=== PATIENT | female | born 1955 | race Caucasian/White ===

== ENCOUNTER → 2023-03-13 | Emergency (ER) | payer OTHER ==
[~2023-03-13] MED LIST: ACETAMINOPHEN 500 MG TAB ONE
--- OUTSIDE RECORDS SUMMARY | 2023-03-13 17:56 | XMS REPORT | Continuity of Care Document ---
Author Name Unknown Address [address] [place] [address] thconnect Address [address] [place] [address] [address] [place] [address] Care Team Providers Care Market Editor Name Role Phone Cyndy Presley Attending Clinician Unavailable Problems Condition Name Condition Details Condition Category Status Onset Date Resolution Date Last Treatment Date Treating Clinician Comments Source Overweight (BMI 25.0-29.9) Overweight (BMI 25.0-29.9) Diagnosis Active [facility] Seasonal allergies Seasonal allergies Problem Active [facility] Anxiety Anxiety Diagnosis Active [facility] Osteopenia , unspecifie d location Osteopenia , unspecifie d location Diagnosis Active [facility] Gastroesop hageal reflux disease, esophagiti s presence not specified Gastroesop hageal reflux disease, esophagiti s presence not specified Diagnosis Active [facility] Hyperlipid emia, unspecifie d hyperlipid emia type Hyperlipid emia, unspecifie d hyperlipid emia type Problem Active [facility] Polyp of colon, unspecifie d part of colon, unspecifie d type Polyp of colon, unspecifie d part of colon, unspecifie d type Problem Active [facility] Family history of colon cancer Family history of colon cancer Problem Active [facility] Abnormal renal function test Abnormal renal function test Diagnosis Active [facility] Hyperchole sterolemia Hyperchole sterolemia Diagnosis Active [facility] Medications Ordered Medication Name Filled Medication Name Start Date Stop Date Current Medication? Ordering Clinician Indication Dosage Frequency Signature (SIG) Comments Components Source Crestor Crestor 2020-0 2-25 00:00: 00 Yes Cyndy Presley 1 tablet in evening [facility] Nexium Nexium Yes Cyndy Presley (OTC) 1 capsule [facility] Sertraline HCl Sertraline HCl Yes Cyndy Presley 1 tablet [facility] Encounters Start Date/Time End Date/Time Encounter Type Admission Type Attending [facility] Care Facility Care Department Encounter ID Source 2021-04-12 11:37[facility]12 [facility] [id number] [facility] 2021-04-12 11:36:32 Outpatient Cyndy Presley [facility] [id number] [facility] 2021-04-12 11:10:12 [facility] [id number] [facility] 2021-04-12 11:08:40 [facility] [id number] [facility] 2021-04-12 11:08:10 [facility] [id number] [facility] 2021-04-12 11:06:55 Outpatient Cyndy Presley [facility] [id number] [facility] 2021-04-12 11:04:28 Outpatient Cyndy Presley [facility] [id number] [facility] 2019-10-28 16:00:00 2019-10-28 16:00:00 Outpatient [facility] [id number] [facility] 2019-09-29 08:45:00 2019-09-29 08:45:00 Outpatient [facility] [id number] [facility] 2019-05-12 16:15:00 2019-05-12 16:15:00 Outpatient [facility] Family [facility] [id number] [facility] 2019-04-21 08:20:00 2019-04-21 08:20:00 Outpatient [facility] [id number] [facility] 2019-04-16 10:30:00 2019-04-16 10:30:00 Outpatient [facility] [id number] [facility]
[2023-03-13 19:28] LABS: Absolute Lymphocytes (CBC) 0.8 K/uL (0.7-4.9); Hematocrit 40.4 % (36.0-45.0); Lymphocytes % 8.1 % (15.3-44.8); MCV 87.2 fL (80-100); MPV 8.1 fL (7.6-11.3); Platelets 320 thou/uL (152-406); RBC Red Blood Cell Count 4.63 M/uL (3.86-4.86)
[2023-03-13 19:32] LABS: Albumin 3.8 g/dL (3.4-5.0); Bilirubin Total 0.4 mg/dL (0.2-1.0); Potassium 3.9 mEq/L (3.5-5.1); Protein, Total 7.4 g/dL (6.4-8.2)
[2023-03-13 19:32] LABS: Specific Gravity 1.024 (1.005-1.030); Urine Bacteria None Seen /HPF (<20); Urine Bilirubin NEGATIVE (Negative); Urine Blood Negative (Negative); Urine Clarity Clear (Clear); Urine Color Light-Yellow (Yellow); Urine Glucose NEGATIVE (Negative); Urine Mucus Slight /HPF (None Seen); Urine Protein NEGATIVE (Negative); Urine RBC <5 /HPF (None Seen); Urine Urobilinogen Normal (Normal); Urine pH 5.5 (5.0-7.0)
[2023-03-13 19:35] LABS: SARS-COV-2 RT PCR NEGATIVE (NEGATIVE)
--- NOTE | 2023-03-13 20:18 | RAD REPORT ---
EXAM DESCRIPTION: RAD - Chest Single View - 03/13/2023 7:49 pm CLINICAL HISTORY: COUGH Chest pain. COMPARISON: No comparisons FINDINGS: Portable technique limits examination quality. The lungs are grossly clear. The heart is normal in size. No displaced fractures. IMPRESSION: No acute intrathoracic process suspected.
--- NOTE | 2023-03-13 21:06 | RAD REPORT ---
EXAM DESCRIPTION: CTAbdomen Pelvis W Contrast - 03/13/2023 8:49 pm CLINICAL HISTORY: Abdominal pain. ABD PAIN COMPARISON: No comparisons TECHNIQUE: Biphasic CT imaging of the abdomen and pelvis was performed with 100 ml non-ionic IV cont rast. All CT scans are performed using dose optimization technique as appropriate and may include automated exposure control or mA/KV adjustment according to patient size. FINDINGS: The lung bases are clear. The liver, spleen, pancreas, adrenal glands and kidneys are within normal limits. No bowel obstruction, free air, free fluid or abscess. Nonvisualized appendix. No evidence of signi ficant lymphadenopathy. No evidence of perirectal abscess. No suspicious bony findings. IMPRESSION: No acute intra-abdominal or pelvic finding.
--- NOTE | 2023-03-13 21:47 | EDPHYS ---
Physician Documentation [facility] Name: Digna Carter Age: 67 yrs Sex: Female : 1955 Arrival Date: 03/13/2023 Time: 17:54 Bed 9 Private MD: ED Physician Waldemar Madden HPI: 03/13 19:35 This 67 yrs old Female presents to ER via Ambulatory with complaints of ec2 Fever, Infection?. 19:36 Patient arrives today due to concern for fever. Patient reports that she been having ec2 fever at home with no specific trigger. Patient reports that she has some hemorrhoids and she is concerned about that because they are causing pain. Patient reports no nausea or vomiting, denies any abdominal pain. Reports no urinary complaints. Denies any cough and cold symptoms.. Historical: - Allergies: 18:23 No Known Allergies; hb - Home Meds: 18:23 atorvastatin oral [Active]; sertraline oral [Active]; hb - PMHx: 18:23 Anxiety; hb - PSHx: 18:23 Appendectomy; hb - Immunization history:: Adult Immunizations up to date. - Social history:: Smoking status: Patient denies any tobacco usage or history of. ROS: 19:38 Constitutional: as per hpi ec2 Exam: 19:38 Constitutional: GEN: NAD Head: atraumatic Eyes: EOMI Ears: External ears are ec2 normal. CV: regular rate LUNGS: no respiratory distress ABD: non-distended, soft, nontender, no guarding, not rigid, rectal exam performed under nurse supervision, Kina, shows multiple hemorrhoids that are nonthrombosed, rectal pain on ODALIS SKIN: no evidence of rashes MSK: no evidence of trauma NEURO: moves all extremities equally Vital Signs: 18:21 BP 131 / 75; Pulse 100; Resp 16; Temp 100(TE); Pulse Ox 100% on R/A; Weight 79.38 kg; hb Height 5 ft. 5 in. ; Pain 2/10; 21:45 BP 116 / 73; Pulse 71; Resp 16; Temp 99.1(O); Pulse Ox 96% on R/A; Pain 5/10; tl4 18:21 Body Mass Index 29.12 (79.38 kg, 165.1 cm) hb 18:21 Pain Scale: Adult hb 21:45 Pain Scale: Adult tl4 MDM: 18:07 Patient medically screened. ec2 19:38 Data reviewed: vital signs. ED course: Patient arrives today due to concern for fever. ec2 Examination markable well-appearing nontoxic dividual is otherwise in no acute distress. Will obtain lab work, viral swab, chest x-ray. Currently considering processes such as viral infection, pneumonia. Will also obtain CT abdomen pelvis to evaluate for rectal abscess.. 19:39 ED course: CBC is reassuring. Metabolic profile with appropriate electrolytes, some ec2 diminished renal function noted, urine is noninfectious appearing. COVID and flu and RSV testing are negative. I will obtain a CT scan of the abdomen pelvis given the patient's rectal pain as well as her fevers. Currently considering process such as rectal abscess. . 19:49 ED course: EKG independently reviewed and interpreted by me, shows normal sinus rhythm, ec2 rate of 84, no acute ST segment elevations, nonconcerning intervals.. 03/13 18:25 Order name: CBC with Diff; Complete Time: 19:38 ec2 03/13 18:25 Order name: CMP; Complete Time: 19:38 ec2 03/13 18:25 Order name: UAM; Complete Time: 19:38 ec2 03/13 18:25 Order name: COVID-19/FLU A+B/RSV; Complete Time: 19:38 ec2 03/13 19:35 Order name: CT Abd/Pelvis - IV Contrast Only; Complete Time: 21:07 ec2 03/13 19:37 Order name: CXR XRAY; Complete Time: 20:29 ec2 03/13 18:25 Order name: EKG; Complete Time: 18:25 ec2 03/13 18:25 Order name: EKG - Nurse/Tech; Complete Time: 19:49 ec2 Administered Medications: 18:49 Drug: Acetaminophen PO 1000 mg PO once Route: PO; tl4 Disposition: 21:45 Chart complete. Chart complete. sb4 Disposition Summary: 03/13/23 21:46 Discharge Ordered Notes: Location: Home sb4 Problem: new sb4 Symptoms: have improved sb4 Condition: Stable sb4 Diagnosis - Other hemorrhoids sb4 - Fever, unspecified sb4 Followup: sb4 - With: Mohit Mccullough MD - When: As needed - Reason: Recheck today's complaints, Re-evaluation by your physician Discharge Instructions: - Discharge Summary Sheet sb4 - High-Fiber Eating Plan sb4 - Hemorrhoids sb4 Forms: - Medication Reconciliation Form sb4 - Thank You Letter sb4 - Antibiotic Education sb4 - Prescription Opioid Use sb4 - Patient Portal Instructions sb4 - Leadership Thank You Letter sb4 Prescriptions: - Augmentin 875-125 mg Oral Tablet - take 1 tablet ORAL route every 12 hours for 10 days; 20 tablet; Refills: 0, sb4 Product Selection Permitted Addendum: 03/15/2023 07:14 I agree with the assessment and plan of care. e c2 Signatures: Dispatcher [employer] Loren Gongora RN RN Dyan Mulligan, PAFiordalizaC PAAnnie sb4 Waldemar Madden MD MD ec2 Maldonado Cook tl4
--- NOTE | 2023-03-13 21:47 | ER ---
Nurse's Notes [facility] Name: Digna Carter Age: 67 yrs Sex: Female : 1955 Arrival Date: 03/13/2023 Time: 17:54 Bed 9 Private MD: Diagnosis: Other hemorrhoids;Fever, unspecified Presentation: 03/13 18:21 Chief complaint: Patient states: "I think I have infected hemorrhoid." Reports rectal hb pain and bleeding x 4 days, fever x 2 days. TMAX 102. Coronavirus screen: At this time, the client does not indicate any symptoms associated with coronavirus-19. Ebola Screen: No symptoms or risks identified at this time. Initial Sepsis Screen: Does the patient meet any 2 criteria? HR > 90 bpm. No. Patient's initial sepsis screen is negative. Does the patient have a suspected source of infection? No. Patient's initial sepsis screen is negative. Risk Assessment: Do you want to hurt yourself or someone else? Patient reports no desire to harm self or others. Onset of symptoms was March 09, 2023. 18:21 Method Of Arrival: Ambulatory hb 18:21 Acuity: DEANNA 3 hb Triage Assessment: 19:11 General: Appears uncomfortable, Behavior is calm, cooperative. tl4 Historical: - Allergies: 18:23 No Known Allergies; hb - Home Meds: 18:23 atorvastatin oral [Active]; sertraline oral [Active]; hb - PMHx: 18:23 Anxiety; hb - PSHx: 18:23 Appendectomy; hb - Immunization history:: Adult Immunizations up to date. - Social history:: Smoking status: Patient denies any tobacco usage or history of. Screenin:10 [facility] ED Fall Risk Assessment (Adult) History of falling in the last 3 months, tl4 including since admission No falls in past 3 months (0 pts) Confusion or Disorientation No (0 pts) Intoxicated or Sedated No (0 pts) Impaired Gait No (0 pts) Mobility Assist Device Used No (0 pt) Altered Elimination Yes (1 pt) Score/Fall Risk Level 0 - 2 = Low Risk. Abuse screen: Denies threats or abuse. Denies injuries from another. Nutritional screening: No deficits noted. Tuberculosis screening: No symptoms or risk factors identified. Assessment: 19:10 Reassessment: No changes from previously documented assessment. Patient and/or family tl4 updated on plan of care and expected duration. Pain level reassessed. Patient is alert, oriented x 3, equal unlabored respirations, skin warm/dry/pink. Pain: Complains of pain in rectum. 21:55 Reassessment: Patient appears in no apparent distress at this time. Patient and/or jb4 family updated on plan of care and expected duration. Pain level reassessed. Patient is alert, oriented x 3, equal unlabored respirations, skin warm/dry/pink. Vital Signs: 18:21 BP 131 / 75; Pulse 100; Resp 16; Temp 100(TE); Pulse Ox 100% on R/A; Weight 79.38 kg; hb Height 5 ft. 5 in. ; Pain 2/10; 21:45 BP 116 / 73; Pulse 71; Resp 16; Temp 99.1(O); Pulse Ox 96% on R/A; Pain 5/10; tl4 18:21 Body Mass Index 29.12 (79.38 kg, 165.1 cm) hb 18:21 Pain Scale: Adult hb 21:45 Pain Scale: Adult tl4 ED Course: 18:04 Patient arrived in ED. mg5 18:07 Waldemar Madden MD is Attending Physician. ec2 18:23 Triage completed. hb 18:25 Arm band placed on. hb 18:41 Maldonado Cook is Primary Nurse. tl4 18:49 COVID-19/FLU A+B/RSV Sent. tl4 19:09 UAM Sent. tl4 19:09 CMP Sent. tl4 19:09 CBC with Diff Sent. tl4 19:09 Inserted saline lock: 20 gauge in left antecubital area, using aseptic technique. Blood tl4 collected. 19:10 Patient has correct armband on for positive identification. Placed in gown. Bed in low tl4 position. Call light in reach. Side rails up X2. Provided Education on: ED process. 19:36 Served as a atm manager during rectal exam. cm10 19:51 CXR XRAY In Process Unspecified. EDMS 20:29 Dyan Villavicencio PA-C is PHCP. ec2 20:51 CT Abd/Pelvis - IV Contrast Only In Process Unspecified. EDMS 21:46 Mohit Mccullough MD is Referral Physician. sb4 21:46 IV discontinued, intact, bleeding controlled, No redness/swelling at site. Pressure tl4 dressing applied. Administered Medications: 18:49 Drug: Acetaminophen PO 1000 mg PO once Route: PO; tl4 Medication: 19:10 VIS not applicable for this client. tl4 Outcome: 21:46 Discharge ordered by . sb4 21:55 Discharged to home ambulatory, jb4 21:55 Condition: stable 21:55 Discharge instructions given to patient, Instructed on discharge instructions, follow up and referral plans. medication usage, Demonstrated understanding of instructions, follow-up care, medications, Prescriptions given X 1, 21:55 Patient left the ED. jb4 Signatures: Dispatcher [employer] EDLoren Chambers RN RN Golden Mendez RN RN jb4 Dyan Villavicencio, PA-C PA-C sb4 Kina Zhou, RN RN cm10 Taylor Paz mg5 Waldemar Madden MD MD ec2 [place], Maldonado tl4 Corrections: (The following items were deleted from the chart) 18:25 18:21 BP 131 / 75; Pulse 100bpm; Resp 16bpm; Pulse Ox 100% RA; Temp 100F Temporal; hb hb 19:36 19:11 No provider procedures requiring assistance completed. tl4 cm10
[2023-03-14 01:07] VITALS: BP 116/73; TEMP 99.1; O2SAT 96
--- NOTE | 2023-03-14 13:20 | EKG ---
Test Date: 2023-03-13 Test Time: 19:46:17 Player Development Manager: MP MEASUREMENT RESULTS: Intervals: Rate: 84 OR: 146 QRSD: 94 QT: 376 QTc: 444 [place]: P: 75 OR: 146 QRS: 51 T: 74 INTERPRETIVE STATEMENTS: Normal sinus rhythm Normal ECG No previous ECG available for comparison Electronically Signed On 03-14-23 13:18:23 INSPECTING MACHINE ADJUSTER by Marcos Shultz
== END ==
LOC: ER 17:54
DX: R50.9 Fever, unspecified (principal); K64.8 Other hemorrhoids; F41.9 Anxiety disorder, unspecified; Z11.52 Encounter for screening for COVID-19
CPT/HCPCS: 93005; 85025; 81001; 36415; 80053; 0241U; 74177; 71045; 99284; Q9967